=== PATIENT | female | born 1960 | race Caucasian/White ===

== ENCOUNTER → 2017-04-04 | Outpatient (CLI) | payer OTHER ==
[~2017-04-04] MED LIST: GABA100C4 PO; HYDR-3533 PO; LISI-363 PO; LISI-515 PO
--- NOTE | 2017-04-04 14:36 | RADRPT ---
EXAM DATE/TIME: 04/04/2017 14:06 [place] COMPARISON: No previous studies available for comparison. INDICATIONS : Evaluate for pulmonary nodule. RADIATION DOSE: 5.1 CTDIvol (mGy) MEDICAL HISTORY : Hypertension. Chronic obstructive pulmonary disease. GERD, Aspergillosis SURGICAL HISTORY : Tonsillectomy. Thoracotomy. ENCOUNTER: Initial ACUITY: 1 day PAIN SCALE: 6/10 LOCATION: Right chest TECHNIQUE: Volumetric scanning of the chest was performed. Using automated exposure control and adjustment of t he mA and/or kV according to patient size, radiation dose was kept as low as reasonably achievable to obtain optimal diagnostic quality images. FINDINGS: Examination of the mediastinum demonstrates no abnormally enlarged lymph nodes by CT criteria. No axi llary or hilar abnormalities are identified. Coronary artery calcifications are not present. There ar e centrilobular emphysematous changes in both upper lobes. There is linear scar in the right upper lo be. No pulmonary nodules are identified. No pleural effusions are identified. There are no findings o f aspergillosis. CONCLUSION: 1. No evidence of acute thoracic abnormality. No masses are identified. 2. Minimal scarring in the right upper lobe. Shane Torre MD on April 04, 2017 at 14:32 Board Certified Radiologist. This report was verified electronically.
[2017-04-04 14:51] LABS: AUTOMATED NEUTROPHIL # 4.8 TH/MM3 (1.8-7.7); BASOPHIL # 0.1 TH/MM3 (0-0.2); BASOPHIL % 0.7 % (0.0-2.0); EOSINOPHIL # 0.1 TH/MM3 (0-0.4); EOSINOPHIL % 1.8 % (0.0-4.0); HEMATOCRIT 37.1 % (35.0-46.0); HEMO FLAGS DIFF FINAL; LYMPH % 29.5 % (9.0-44.0); LYMPHOCYTE # 2.4 TH/MM3 (1.0-4.8); MEAN CELL VOLUME 98.9 FL (80.0-100.0); MEAN CORPUSCULAR HEMOGLOBIN 32.3 PG (27.0-34.0); MEAN CORPUSCULAR HGB CONC 32.7 % (32.0-36.0); MONO % 8.3 % (0.0-8.0); NEUT % 59.7 % (16.0-70.0); PLATELET COUNT 232 TH/MM3 (150-450); RED BLOOD COUNT 3.75 MIL/MM3 (4.00-5.30); RED CELL DISTRIBUTION WIDTH 13.7 % (11.6-17.2)
[2017-04-04 15:23] LABS: ALKALINE PHOSPHATASE 89 U/L (45-117); ALT (GPT) 32 U/L (10-53); HDL CHOLESTEROL 64.5 MG/DL (40.0-60.0); TOTAL BILIRUBIN ADULT 0.1 MG/DL (0.2-1.0)
[2017-04-04 15:46] LABS: ANION GAP 8 MEQ/L (5-15); AST (GOT) 30 U/L (15-37); BICARBONATE 26.4 MEQ/L (21.0-32.0); BLOOD UREA NITROGEN 10 MG/DL (7-18); CHLORIDE 106 MEQ/L (98-107); GLOMERULAR FILTRATION RATE 55 ML/MIN (>89); GLUCOSE,FASTING 79 MG/DL (74-99); LDL CHOLESTEROL 95 MG/DL (0-99); POTASSIUM 4.1 MEQ/L (3.5-5.1); SODIUM (NA) 140 MEQ/L (136-145)
== END ==
LOC: HRAD 13:30
PROVIDERS: ATTEND Family Medicine
DX: J44.9 Chronic obstructive pulmonary disease, unspecified (principal); F43.20 Adjustment disorder, unspecified; E78.2 Mixed hyperlipidemia; E78.1 Pure hyperglyceridemia; F12.10 Cannabis abuse, uncomplicated; I10 Essential (primary) hypertension; Z72.0 Tobacco use; Z86.19 Personal history of other infectious and parasitic diseases
CPT/HCPCS: 36415; 71250; 80053; 80061; 84443; 85025